=== PATIENT | female | born 1975 | race Caucasian/White ===

== ENCOUNTER 2016-05-29 10:06 | Outpatient (CLI) | payer OTHER ==
--- NOTE | 2016-05-29 11:27 | Mammography Report ---
BILATERAL MAMMOGRAM: No previous studies available. CAD study utilized. FINDINGS: Bilateral stable breast implants. Bilateral adjacent normal breast parenchyma with predominance of adipose tissue. No microcalcification. Benign axillary nodes. IMPRESSION: Benign findings. Annual follow-up recommended. BI-RADS CATEGORY: 2 = Benign ACR BI-RADS MAMMOGRAPHIC CODES: 0 = Needs additional imaging evaluation; 1 = Negative; 2 = Benign; 3 = Probably benign; 4 = Suspicious; 5 = Malignant; 6 = Known biopsy-proven malignancy COMMENT: 1. Dense breast tissue, i.e., adenosis, fibrocystic changes, etc., may obscure an underlying neoplasm. 2. Approximately 10% of cancers are not detected with mammography. 3. A negative mammography report should not delay biopsy if a clinically suspicious mass is present. COMMENT: Patient follow-up letters are generated in [employer].
== END 2016-05-29 10:07 | disposition home or self-care (01) ==
LOC: MAMMO 10:06
DX: Z12.31 Encounter for screening mammogram for malignant neoplasm of breast (principal); Z98.82 Breast implant status
CPT/HCPCS: 77067; G0202